=== PATIENT | female | born 1985 | race Caucasian/White ===

== ENCOUNTER 2025-04-20 02:11 | Inpatient (IN) | payer MEDICAID, OTHER ==
[~2025-04-20] VITALS: Ht 149.9 cm; Wt 63.9 kg
--- NOTE | 2025-04-20 02:41 | ED.PDOC ---
General HPI Comments 47-year-old female presents to the ED chief complaint left-sided flank pain x1 day. Patient reports history of kidney stones she states usually she stays home in his able to pass some however this once causing severe pain nausea and vomiting. Last kidney stone was a proximally one to two months ago. Complaining of sharp left-sided flank pain 10/10 on pain scale related symptoms of nausea and vomiting. Also states urinary frequency. Denies fever, chills, difficulty breathing, chest pain, diarrhea, gross blood in urine, recent travel. Chief Complaint: Flank Pain Time Seen by MD: 02:14 Reviewed notes: Nurses Notes, Medications, Allergies Allergies: Coded Allergies: NO KNOWN ALLERGIES (Unverified , 10/01/09) Information Source: Patient Mode of Arrival: Ambulatory Past Medical History PAST MEDICAL HISTORY: Denies Past Medical History (Other): Renal calculi Surgical History: Denies all surgeries CORRAL BOSS History: No Pertinent CORRAL BOSS History Family History Family History: Unknown Social History Smoker: Non-Smoker Alcohol: Denies ETOH Use Drugs: Denies Drug Use All Other Systems: Reviewed and Negative (See HPI) Physical Exam General Appearance: No Apparent Distress, Normal HEENT: Pharynx Normal Neck: Full Range of Motion, Non-Tender Respiratory: Chest Non-Tender, Lungs Clear, No Respiratory Distress, Normal Breath Sounds Cardiovascular: No Edema, No JVD, No Murmur, No Gallop, Normal Peripheral Pulses, Regular Rate/Rhythm Breast Exam: Deferred Gastrointestinal: Guarding (Flank with moderate to severe tenderness with guarding), No Organomegaly, No Pulsatile Mass, Normal Bowel Sounds, Soft, Other (Positive left side CVA tenderness) Genitalia: Deferred Pelvic: Deferred Rectal: Deferred Extremities: Normal range of motion, No pedal edema Musculoskeletal : Apperance: Normal Neurologic: Alert, No Motor Deficits, Normal Affect, Normal Mood, No Sensory Deficits Cerebellar Function: Normal Reflexes: Normal Skin: Dry, Normal Color, Warm Lymphatic: No Adenopathy Was a procedure done? Was a procedure done?: No Differential Diagnosis Kidney stone (Female): Bowel obstruction, Musculoskeletal pain, Pyelonephritis, Urinary obstruction, Urolithiasis X-Ray, Labs, Meds, VS Vital Signs Date Time Temp Pulse Resp B/P (MAP) Pulse Ox O2 Delivery O2 Flow Rate FiO2 04/20/25 03:54 98.0 97 18 110/68 (82) 97 98.0 04/20/25 02:16 98.1 107 16 116/88 98 98.1 Lab Test 04/20/25 03:50 04/20/25 02:50 Range/Units Lactic Acid Level 1.1 0.4-2.0 mmol/L White Blood Count 14.7 H 4.4-10.8 10^3/uL Red Blood Count 4.54 4.0-5.20 10^6/uL Hemoglobin 14.1 12.2-16.2 g/dL Hematocrit 42.5 36.0-46.0 % Mean Corpuscular Volume 93.5 80.0-100.0 fL Mean Corpuscular Hemoglobin 31.1 28.0-32.0 pg Mean Corpuscular Hemoglobin Concent 33.2 32.0-36.0 g/dL Red Cell Distribution Width 14.3 11.8-14.3 % Platelet Count 225 140-450 10^3/uL Mean Platelet Volume 8.1 6.9-10.8 fL Neutrophils (%) (Auto) 84.6 H 37.0-80.0 % Lymphocytes (%) (Auto) 11.7 10.0-50.0 % Monocytes (%) (Auto) 2.9 0.0-12.0 % Eosinophils (%) (Auto) 0.4 0.0-7.0 % Basophils (%) (Auto) 0.4 0.0-2.0 % Neutrophils # (Auto) 12.4 H 1.6-8.6 10 ^3/uL Lymphocytes # (Auto) 1.7 0.4-5.4 10 ^3/uL Monocytes # (Auto) 0.4 0-1.3 10 ^3/uL Eosinophils # (Auto) 0.1 0-0.8 10 ^3/uL Basophils # (Auto) 0.1 0-0.2 10 ^3/uL Nucleated Red Blood Cells 0.2 % Sodium Level 140 136-145 mmol/L Potassium Level 4.3 3.5-5.1 mmol/L Chloride Level 108 H 98-107 mmol/L Carbon Dioxide Level 18 L 20-31 mmol/L Anion Gap 14 5-15 Blood Urea Nitrogen 13 9-23 mg/dL Creatinine 1.06 H 0.550-1.02 mg/dL Glomerular Filtration Rate Calc 69 >90 mL/min BUN/Creatinine Ratio 12.3 10.0-20.0 Serum Glucose 92 74-106 mg/dL Calcium Level 9.4 8.7-10.4 mg/dL Total Bilirubin 0.5 0.2-1.0 mg/dL Aspartate Amino Transferase (AST) 22 13-40 U/L Alanine Aminotransferase (ALT) 21 7-40 U/L Alkaline Phosphatase 78 46-116 U/L Total Protein 7.7 5.7-8.2 g/dL Albumin 4.8 3.2-4.8 g/dL Current Medications Medications (Trade) Dose Ordered Sig/Vic Route Start Time Stop Time Status Last Admin Ketorolac Tromethamine (Toradol Injection) 30 mg ONCE ONCE IV 04/20/25 02:30 04/20/25 02:31 DC 04/20/25 03:32 Sodium Chloride 1,000 ml @ 1,000 mls/hr Q1H ONCE IV 04/20/25 02:30 04/20/25 03:29 DC 04/20/25 03:32 Metoclopramide HCl (Reglan Injection) 5 mg ONCE ONCE IV 04/20/25 02:30 04/20/25 02:31 DC 04/20/25 03:32 Morphine Sulfate 4 mg ONCE ONCE IV 04/20/25 03:30 04/20/25 03:31 DC 04/20/25 03:59 Tamsulosin HCl (Flomax) 0.4 mg ONCE ONCE PO 04/20/25 03:30 04/20/25 03:31 DC 04/20/25 03:59 X-Ray, Labs, Meds, VS Comment IMPRESSION: 1. Moderate left hydronephrosis secondary to a partially obstructing proximal u reterolith measuring 6 mm. Patient presented with severe left flank pain, nausea and vomiting. I ordered and reviewed the result of at least 3 labs including a CBC, CMP, Lactic Acid, Blood Cultures, and Urinalysis. 2. I independently interpreted the following tests: CT Abdoment and Pelvis is concerning for moderate left kidney hydronephrosis with partially obstructing urethral calculi 6 mm. Risk:This patient has a high risk of morbidity due to partial obstructing calculi and moderate hydronephrosis may suffer from acute kidney failure infection, and sepsis. Physical exam reveals severe left flank pain along with nausea and vomiting, patient should be admitted for further pain management, and renal consultation. Images Reviewed?: Images reviewed and evaluated by me Time of 1ST Reevaluation: 02:14 Reevaluation 1ST: Unchanged Time of 2ND Reevaluation: 04:21 Reevaluation 2ND: Improved Patient Education/Counseling: Diagnosis, Treatment, Need For Follow Up Family Education/Counseling: Diagnosis, Treatment SEPSIS Sepsis Screen Date sepsis recognized/suspect: Apr 20, 2025 Time Sepsis recognized/suspect: 217 Recent Procedure: No On Antibiotic Therapy: No Respiratory Rate >20: No Heart Rate >90: Yes Temp<36 C (96.8 F) or >38.3 C: No SBP <90 or MAP <65 mmHG: No New Acute Mental Status Change: No Is the patient on CPAP, BIPAP,: No Physician Orders Urinalysis (04/20/25 02:23) Ct Ab Pel Wo Con-No Oral Or Iv (04/20/25 02:23) Blood Culture (04/20/25 03:34) Ceftriaxone 1gm/50ml (Rocephin) (04/20/25 04:00) Vancomycin 1gm/250ml Kit (04/20/25 04:00) Vital Signs Date Time Temp Pulse Resp B/P (MAP) Pulse Ox O2 Delivery O2 Flow Rate FiO2 04/20/25 03:54 98.0 97 18 110/68 (82) 97 98.0 04/20/25 02:16 98.1 107 16 116/88 98 98.1 Laboratory Tests Test 04/20/25 02:50 04/20/25 03:50 White Blood Count 14.7 10^3/uL (4.4-10.8) H Lactic Acid Level 1.1 mmol/L (0.4-2.0) Medications Medications Dose Ordered Sig/Vic Route Start Time Stop Time Status Last Admin Dose Admin Ketorolac Tromethamine 30 mg ONCE ONCE IV 04/20/25 02:30 04/20/25 02:31 DC 04/20/25 03:32 Metoclopramide HCl 5 mg ONCE ONCE IV 04/20/25 02:30 04/20/25 02:31 DC 04/20/25 03:32 Morphine Sulfate 4 mg ONCE ONCE IV 04/20/25 03:30 04/20/25 03:31 DC 04/20/25 03:59 Sodium Chloride 1,000 ml @ 1,000 mls/hr Q1H ONCE IV 04/20/25 02:30 04/20/25 03:29 DC 04/20/25 03:32 Tamsulosin HCl 0.4 mg ONCE ONCE PO 04/20/25 03:30 04/20/25 03:31 DC 04/20/25 03:59 Departure 1 Departure Time of Disposition: 03:26 Impression: Primary Impression: Hydronephrosis with urinary obstruction due to ureteral calculus Disposition: ADMITTED INPATIENT Condition: Stable Discharged With: Relative (Mother) Critical Care Note Critical Care Time?: No Stability Stability form required: No I personally scribed for ER ([email or web address]) on 04/20/25 at 02:46. Electronically submitted by Alexis Wise [email or web address]). [facility]TTON[facility] SAENZ [facility] Apr 20, 2025 02:41 ER Apr 20, 2025 02:46
[2025-04-20 03:14] LABS: Hematocrit 42.5 % (36.0-46.0); Hemoglobin 14.1 g/dL (12.2-16.2); Mean Corpuscular Hemoglobin 31.1 pg (28.0-32.0); Mean Corpuscular Volume 93.5 fL (80.0-100.0); Nucleated Red Blood Cells % 0.2 %
--- NOTE | 2025-04-20 03:23 | DVH ---
Exam: CT CT AB PEL WO CON-NO ORAL OR IV History: FLANK PAIN Comparison Study: None Technique: Multidetector spiral CT of the abdomen was performed from lung bases to pubic symphysis. Imaging was performed without IV contrast. Axial, coronal and sagittal multiplanar reformats were obtained from the axial data set by the technologist. Radiation Dose : 1. Abdomen/Pelvis: CTDIvol 5.67 mGy, DLP 272.44 mGy*cm. Findings: Evaluation of solid organs is limited due to lack of intravenous contrast use. Lung Bases: No acute or significant lung base finding. Normal heart size. No pleural or pericardial effusion. Liver: The liver is normal in size. No focal lesions. Gallbladder and Biliary Tree: Unremarkable Spleen: Unremarkable Pancreas: The pancreas is grossly normal in appearance. Adrenal Glands: Unremarkable Kidneys: Moderate left hydronephrosis secondary to a partially obstructing proximal ureterolith measuring 6 mm. Bladder: Grossly unremarkable for degree of distention. Bowel: The stomach is grossly normal in appearance with postsurgical change. Small bowel and colon are normal in caliber and distribution. The appendix is surgically absent. Ascites: Absent Lymphadenopathy: No mesenteric, retroperitoneal or periportal lymphadenopathy. Abdominal Wall and Mesentery: Unremarkable. Vasculature: The visualized abdominal aorta is normal in size and caliber. Evaluation of abdominal and pelvic vessels is limited due to lack of intravenous contrast. Pelvic Organs: Unremarkable Musculoskeletal: No aggressive focal bony lesions, acute fractures or dislocation. IMPRESSION: 1. Moderate left hydronephrosis secondary to a partially obstructing proximal ureterolith measuring 6 mm. Radiation optimization: All CT scans at this facility use at least one of these dose optimization techniques: automated exposure control mA and/or kV adjustment per patient size (includes targeted exams where dose is matched to clinical indication) or iterative reconstruction.
[2025-04-20] MEDS: SODIUM CHLORIDE 0.9% 1,000 ML IV ONE (03:32)
[2025-04-20] MEDS: KETOROLAC TROMETH 30 MG/ML 1ML VIAL IV ONE (03:32)
[2025-04-20] MEDS: METOCLOPRAMIDE HCL 5MG/ml INJ 2ml VIAL IV ONE (03:32)
[2025-04-20 03:39] LABS: Alanine Aminotransferase 21 U/L (7-40); Alkaline Phosphatase 78 U/L (46-116); Anion Gap 14 (5-15); BUN/Creatinine Ratio 12.3 (10.0-20.0); Blood Urea Nitrogen 13 mg/dL (9-23); Calcium 9.4 mg/dL (8.7-10.4); Glucose 92 mg/dL (74-106); Potassium 4.3 mmol/L (3.5-5.1); Sodium 140 mmol/L (136-145); Total Protein 7.7 g/dL (5.7-8.2)
[2025-04-20 03:40] LABS: Albumin 4.8 g/dL (3.2-4.8); Bilirubin, Total 0.5 mg/dL (0.2-1.0)
[2025-04-20 03:59] LABS: Carbon Dioxide 18 mmol/L (20-31); Chloride 108 mmol/L (98-107)
[2025-04-20] MEDS: TAMSULOSIN HYDROCHLORIDE 0.4 MG CAP PO ONE (03:59)
[2025-04-20] MEDS: MORPHINE SULFATE 4 MG/ML SYR/VIAL IV ONE (03:59)
[2025-04-20] MEDS ORDERED: ACETAMINOPHEN 325 MG TAB PO PRN (04:00)
[2025-04-20] MEDS: VANCOMYCIN 1GM/250ML KIT 250 ML IV ONE (04:13)
--- NOTE | 2025-04-20 04:30 | DVHHP2 ---
History of Present Illness Reason for Visit: Flank pain History of Present Illness 39-year-old female presents for evaluation of flank pain. Patient with a history of kidney stones presents for evaluation of a one day history of left- sided flank pain. She reports nausea and vomiting associated with the pain. She also reports urinary frequency. Denies fever or chills. No other acute complaints reported. Past Medical History Kidney stones Past Surgical History Denies Family History Noncontributory Smoke: No ALCOHOL: none Drugs: None Lives: with Family Review of Systems Review of Systems Review of systems are currently negative otherwise addressed in HPI. Allergies: Coded Allergies: NO KNOWN ALLERGIES (Unverified , 10/01/09) Medications Current Medications Medications Dose Ordered Sig/Vic Route Start Time Stop Time Status Last Admin Dose Admin Ceftriaxone Sodium 50 ml @ 100 mls/hr DAILY@0400 IV 04/21/25 04:00 Acetaminophen/ Hydrocodone Bitart 1 tab Q4HP PRN PO 04/20/25 04:00 Ondansetron HCl 4 mg Q4HP PRN IV 04/20/25 04:00 Acetaminophen 650 mg Q6HP PRN PO 04/20/25 04:00 Morphine Sulfate 2 mg Q6HPRN PRN IV 04/20/25 04:00 Exam Vital Signs Vital Signs Date Time Temp Pulse Resp B/P (MAP) Pulse Ox O2 Delivery O2 Flow Rate FiO2 04/20/25 04:23 96 18 108/75 04/20/25 04:15 Room Air* 0 21 04/20/25 03:54 98.0 97 98.0 Exam Gen: 47-year-old female in mild distress Skin: Warm, dry, normal color and texture, no rash. HEENT: Normocephalic atraumatic, mucous membranes moist and pink. Neck: Cervical and supraclavicular nodes normal without enlargement, trachea is midline, thyroid gland is normal without masses. Pulmonary: Clear to auscultation and percussion bilaterally. Cardiac: Regular rate and rhythm. No murmur Abdomen: Soft, flank tenderness, nondistended, bowel sounds present all 4 quadrants, no guarding, no rigidity, no organomegaly. Extremities: No cyanosis, clubbing, no edema Neuro: Cranial nerves II through XII grossly intact, normal affect and speech, no focal motor deficits. Labs/Xrays ORDERING PHYSICIAN: LETTY,OTTONIEL FASHION SHOW DIRECTOR PROCEDURE(s): ABPL - CT AB PEL WO CON-NO ORAL OR IV REASON: FLANK PAIN ORDER NUMBER(s): [id number], ACCESSION NUMBER(s): [id number] Exam: CT CT AB PEL WO CON-NO ORAL OR IV History: FLANK PAIN Comparison Study: None Technique: Multidetector spiral CT of the abdomen was performed from lung bases to pubic symphysis. Imaging was performed without IV contrast. Axial, coronal and sagittal multiplanar reformats were obtained from the axial data set by the technologist. Radiation Dose : 1. Abdomen/Pelvis: CTDIvol 5.67 mGy, DLP 272.44 mGy*cm. Findings: Evaluation of solid organs is limited due to lack of intravenous contrast use. Lung Bases: No acute or significant lung base finding. Normal heart size. No pleural or pericardial effusion. Liver: The liver is normal in size. No focal lesions. Gallbladder and Biliary Tree: Unremarkable Spleen: Unremarkable Pancreas: The pancreas is grossly normal in appearance. Adrenal Glands: Unremarkable Kidneys: Moderate left hydronephrosis secondary to a partially obstructing proximal ureterolith measuring 6 mm. Bladder: Grossly unremarkable for degree of distention. Bowel: The stomach is grossly normal in appearance with postsurgical change. Small bowel and colon are normal in caliber and distribution. The appendix is surgically absent. Ascites: Absent Lymphadenopathy: No mesenteric, retroperitoneal or periportal lymphadenopathy. Abdominal Wall and Mesentery: Unremarkable. Vasculature: The visualized abdominal aorta is normal in size and caliber. Evaluation of abdominal and pelvic vessels is limited due to lack of intravenous contrast. Pelvic Organs: Unremarkable Musculoskeletal: No aggressive focal bony lesions, acute fractures or dislocation. IMPRESSION: 1. Moderate left hydronephrosis secondary to a partially obstructing proximal ureterolith measuring 6 mm. Radiation optimization: All CT scans at this facility use at least one of these dose optimization techniques: automated exposure control mA and/or kV adjustment per patient size (includes targeted exams where dose is matched to clinical indication) or iterative reconstruction. ATED BY: DANK BENNETT MD Labs Test 04/20/25 03:50 04/20/25 02:50 Range/Units Lactic Acid Level 1.1 0.4-2.0 mmol/L White Blood Count 14.7 H 4.4-10.8 10^3/uL Red Blood Count 4.54 4.0-5.20 10^6/uL Hemoglobin 14.1 12.2-16.2 g/dL Hematocrit 42.5 36.0-46.0 % Mean Corpuscular Volume 93.5 80.0-100.0 fL Mean Corpuscular Hemoglobin 31.1 28.0-32.0 pg Mean Corpuscular Hemoglobin Concent 33.2 32.0-36.0 g/dL Red Cell Distribution Width 14.3 11.8-14.3 % Platelet Count 225 140-450 10^3/uL Mean Platelet Volume 8.1 6.9-10.8 fL Neutrophils (%) (Auto) 84.6 H 37.0-80.0 % Lymphocytes (%) (Auto) 11.7 10.0-50.0 % Monocytes (%) (Auto) 2.9 0.0-12.0 % Eosinophils (%) (Auto) 0.4 0.0-7.0 % Basophils (%) (Auto) 0.4 0.0-2.0 % Neutrophils # (Auto) 12.4 H 1.6-8.6 10 ^3/uL Lymphocytes # (Auto) 1.7 0.4-5.4 10 ^3/uL Monocytes # (Auto) 0.4 0-1.3 10 ^3/uL Eosinophils # (Auto) 0.1 0-0.8 10 ^3/uL Basophils # (Auto) 0.1 0-0.2 10 ^3/uL Nucleated Red Blood Cells 0.2 % Sodium Level 140 136-145 mmol/L Potassium Level 4.3 3.5-5.1 mmol/L Chloride Level 108 H 98-107 mmol/L Carbon Dioxide Level 18 L 20-31 mmol/L Anion Gap 14 5-15 Blood Urea Nitrogen 13 9-23 mg/dL Creatinine 1.06 H 0.550-1.02 mg/dL Glomerular Filtration Rate Calc 69 >90 mL/min BUN/Creatinine Ratio 12.3 10.0-20.0 Serum Glucose 92 74-106 mg/dL Calcium Level 9.4 8.7-10.4 mg/dL Total Bilirubin 0.5 0.2-1.0 mg/dL Aspartate Amino Transferase (AST) 22 13-40 U/L Alanine Aminotransferase (ALT) 21 7-40 U/L Alkaline Phosphatase 78 46-116 U/L Total Protein 7.7 5.7-8.2 g/dL Albumin 4.8 3.2-4.8 g/dL SEPSIS Sepsis Screen Date sepsis recognized/suspect: Apr 20, 2025 Time Sepsis recognized/suspect: 416 Recent Procedure: No On Antibiotic Therapy: No Respiratory Rate >20: No Heart Rate >90: No Temp<36 C (96.8 F) or >38.3 C: No SBP <90 or MAP <65 mmHG: No New Acute Mental Status Change: No Is the patient on CPAP, BIPAP,: No Physician Orders Urinalysis (04/20/25 02:23) Ct Ab Pel Wo Con-No Oral Or Iv (04/20/25 02:23) Blood Culture (04/20/25 03:34) Ceftriaxone 1gm/50ml (Rocephin) (04/20/25 04:00) Vancomycin 1gm/250ml Kit (04/20/25 04:00) * Urology Consult (04/20/25 03:56) Regular Diet (04/20/25 Breakfast) Basic Metabolic Panel (04/21/25 04:00) Admit (04/20/25 03:56) Hydrocodone-Acet 5/325mg Tab (Alda 5/32 (04/20/25 04:00) Ondansetron Hcl (Zofran) (04/20/25 04:00) Condition: Stable (04/20/25 03:56) Acetaminophen Tablet (Tylenol Tablet) (04/20/25 04:00) Bedrest With Bathroom Privileg (04/20/25 03:56) Morphine Sulfate Injection (04/20/25 04:00) Ceftriaxone 1gm/50ml (Rocephin) (04/21/25 04:00) Vital Signs Date Time Temp Pulse Resp B/P (MAP) Pulse Ox O2 Delivery O2 Flow Rate FiO2 04/20/25 04:23 96 18 108/75 04/20/25 04:15 Room Air* 0 21 04/20/25 03:59 93 18 110/68 04/20/25 03:54 98.0 97 18 110/68 (82) 97 98.0 04/20/25 02:16 98.1 107 16 116/88 98 98.1 Laboratory Tests Test 04/20/25 02:50 04/20/25 03:50 White Blood Count 14.7 10^3/uL (4.4-10.8) H Lactic Acid Level 1.1 mmol/L (0.4-2.0) Medications Medications Dose Ordered Sig/Vic Route Start Time Stop Time Status Last Admin Dose Admin Ceftriaxone Sodium 50 ml @ 100 mls/hr ONCE ONCE IV 04/20/25 04:00 04/20/25 04:29 04/20/25 03:59 100 MLS/HR Ketorolac Tromethamine 30 mg ONCE ONCE IV 04/20/25 02:30 04/20/25 02:31 DC 04/20/25 03:32 30 MG Metoclopramide HCl 5 mg ONCE ONCE IV 04/20/25 02:30 04/20/25 02:31 DC 04/20/25 03:32 5 MG Morphine Sulfate 4 mg ONCE ONCE IV 04/20/25 03:30 04/20/25 03:31 DC 04/20/25 03:59 4 MG Sodium Chloride 1,000 ml @ 1,000 mls/hr Q1H ONCE IV 04/20/25 02:30 04/20/25 03:29 DC 04/20/25 03:32 1,000 MLS/HR Tamsulosin HCl 0.4 mg ONCE ONCE PO 04/20/25 03:30 04/20/25 03:31 DC 04/20/25 03:59 0.4 MG Vancomycin HCl 250 ml @ 250 mls/hr ONCE ONCE IV 04/20/25 04:00 04/20/25 04:59 04/20/25 04:13 250 MLS/HR Assessment/Plan Assessment/Plan Assessment Obstructive uropathy Ureteral calculus left hydronephrosis secondary to the above Leukocytosis Acute kidney injury Plan Admit the [facility] to [facility] to the hospitalist Urology consultation Rocephin Pain management Continue treatment per orders Plan discussed with: Patient My Orders Orders - NASREEN BETTENCOURT Procedure Category Date Status Time * Urology Consult CONS 04/20/25 Transmitted 03:56 Regular Diet DIET 04/20/25 Transmitted Breakfast Basic Metabolic Panel LAB 04/21/25 Verified 04:00 Admit ADMIT 04/20/25 Transmitted 03:56 Hydrocodone-Acet PHA 04/20/25 In Process 5/325mg Tab (Alda 04:00 Ondansetron Hcl PHA 04/20/25 In Process (Zofran) 04:00 Condition: Stable PONCE 04/20/25 In Process 03:56 Acetaminophen Tablet PHA 04/20/25 In Process (Tylenol Tablet) 04:00 Bedrest With Bathroom PONCE 04/20/25 In Process Privileg 03:56 Morphine Sulfate PHA 04/20/25 In Process Injection 04:00 Ceftriaxone 1gm/50ml PHA 04/21/25 In Process (Rocephin) 04:00 Date of Service: Apr 20, 2025 Billing Provider: NASREEN BETTENCOURT Common Visit Codes: [id number] INP/OBS CARE (MOD) NASREEN BETTENCOURT Apr 20, 2025 04:30
[2025-04-20] MEDS: ONDANSETRON HCL 4 MG/2 ML VIAL IV PRN (09:17)
[2025-04-20 10:00] VITALS: PULSE 89; RESP 18; O2SAT 98
[2025-04-20 10:31] VITALS: BP 107/68; PULSE 89; RESP 18; TEMP 98.7; O2SAT 98
[2025-04-20 10:32] VITALS: BP 107/68; PULSE 89; RESP 18; TEMP 98.7; O2SAT 98
[2025-04-20] MEDS: SODIUM CHLORIDE 0.9% 1,000 ML IV SCH (11:30)
--- NOTE | 2025-04-20 12:26 | DVHPN2 ---
Subjective Patient continues to reporting having left flank pain as well as generalized weakness. Reviewed: Care Plan, H&P, Labs, Medications Changes from previous H/P or p: No Changes General: Per HPI Objective Vitals Vital Signs Date Time Temp Pulse Resp B/P (MAP) Pulse Ox O2 Delivery O2 Flow Rate FiO2 04/20/25 10:32 98.7 89 18 107/68 (81) 98 98.7 04/20/25 04:15 Room Air* 0 21 General Appearance: Alert, Oriented X3, Cooperative, mild distress HEENT: Atraumatic, PERRLA Lungs: Clear to auscultation, Normal air movement Cardiovascular: Normal S1, Normal S2 Abdomen: Normal bowel sounds, Soft, No tenderness, No hepatospenomegaly, No masses Genitourinary: No Apparent Abnormalities Back: Flank Tenderness, Midline Tenderness Musculoskeletal: Normal sensory function, Normal motor function Extremities: No clubbing, No cyanosis, No edema, Normal pulses, No tenderness/swelling Neuro: Normal gait, Normal speech, Cranial nerves 3-12 NL Skin: Dry, Intact Psych/Mental Status: Mental status NL, Mood NL Medications Current Medications Medications Dose Ordered Sig/Vic Route Start Time Stop Time Status Last Admin Dose Admin Ceftriaxone Sodium 50 ml @ 100 mls/hr DAILY@0400 IV 04/21/25 04:00 Acetaminophen/ Hydrocodone Bitart 1 tab Q4HP PRN PO 04/20/25 04:00 Ondansetron HCl 4 mg Q4HP PRN IV 04/20/25 04:00 04/20/25 09:17 4 MG Acetaminophen 650 mg Q6HP PRN PO 04/20/25 04:00 Morphine Sulfate 2 mg Q6HPRN PRN IV 04/20/25 04:00 Sodium Chloride 1,000 ml @ 75 mls/hr [id number] IV 04/20/25 11:30 Laboratory Results Laboratory Tests 04/20/25 02:50 Chemistry Test 04/20/25 02:50 Albumin 4.8 g/dL (3.2-4.8) Calcium Level 9.4 mg/dL (8.7-10.4) Total Protein 7.7 g/dL (5.7-8.2) LFT Test 04/20/25 02:50 Alanine Aminotransferase (ALT) 21 U/L (7-40) Alkaline Phosphatase 78 U/L (46-116) Aspartate Amino Transferase (AST) 22 U/L (13-40) Total Bilirubin 0.5 mg/dL (0.2-1.0) Labs and/or images reviewed: Labs reviewed by me, Image(s) reviewed by me Assessment/Plan Assessment/Plan Impression: -sepsis -complicated cystitis -obstructive uropathy with left nephrolithiasis Plan: -IV hydration -urology consultation -strain urine for stones -continue IV Rocephin -pain management -blood and urine culture -labs in a.m. Total time spent with patient discussing and formulating plan of care: 35 minutes. This medical document was created using an electronic medical record system with [employer] dictation system. Although this document has been carefully reviewed, there may still be some phonetic and typographical errors. These areas are purely typographical due to imperfections of the software programs, and do not reflect any compromise in the patient's medical care. Plan discussed with: Patient, Other (RN) My Orders Orders - IRAIDA DINH NP Procedure Category Date Status Time * Urology Consult CONS 04/20/25 Transmitted 11:25 Sodium Chloride 0.9% PHA 04/20/25 In Process 11:30 Complete Blood Count LAB 04/21/25 Verified 04:00 Urine Bacterial PAYAM 04/20/25 Transmitted Culture 12:19 Tamsulosin PHA 04/20/25 Transmitted Hydrochloride (Flomax) 18:00 Strain All Urine For PONCE 04/20/25 Transmitted Stones 12:19 Date of Service: Apr 20, 2025 Billing Provider: IRAIDA DINH NP Common Visit Codes: [id number] INP/OBS CARE(HIGH) IRAIDA DINH NP Apr 20, 2025 12:26
[2025-04-20 13:02] LABS: Urine Protein, UAD 1+ (Negative)
--- NOTE | 2025-04-20 13:19 | DVHINCON2 ---
Date of service: Apr 20, 2025 Referring Physician Hospitalist Reason for Consultation obstructive ureteral stone History of Present Illness History Source: Patient, RN Notes, MD Notes Exam Limitations: No limitations HPI 39-year-old female presents for evaluation of flank pain. Patient with a history of kidney stones presents for evaluation of a one day history of left- sided flank pain. She reports nausea and vomiting associated with the pain. She also reports urinary frequency. Denies fever or chills. No other acute complaints reported. Past Medical History Renal/: Other (kidney stones) Patient Family History: Hypertension G8 FATHER H&P Exam Vital Signs Vital Signs Date Time Temp Pulse Resp B/P (MAP) Pulse Ox O2 Delivery O2 Flow Rate FiO2 04/20/25 10:32 98.7 89 18 107/68 (81) 98 98.7 04/20/25 04:15 Room Air* 0 21 General Appeara: Well developed, Well nourished, Normal Appearance Neuro/Mental St: Alert, Oriented Appearance: Appropriate appearance, Appropriate insight Eye contact/ Speech: Cooperative, Good eye contact, Normal speech Skin Exam: Normal inspection, Normal color, Warm/dry Labs/Xrays [place] [address] Ph: [phone] DIAGNOSTIC IMAGING Diagnostic Imaging Report : [id number] Signed PATIENT: CHERIE PRAKASH ACCT: [id number] UNIT: [id number] : 1985 LOC: ER ROOM / BED: / AGE / SEX: 39 / F ADM STATUS: REG ER SERVICE 0223 ORDERING PHYSICIAN: OTTONIEL SAENZ PROCEDURE(s): ABPL - CT AB PEL WO CON-NO ORAL OR IV REASON: FLANK PAIN ORDER NUMBER(s): [id number], ACCESSION NUMBER(s): [id number] Exam: CT CT AB PEL WO CON-NO ORAL OR IV History: FLANK PAIN Comparison Study: None Technique: Multidetector spiral CT of the abdomen was performed from lung bases to pubic symphysis. Imaging was performed without IV contrast. Axial, coronal and sagittal multiplanar reformats were obtained from the axial data set by the technologist. Radiation Dose : 1. Abdomen/Pelvis: CTDIvol 5.67 mGy, DLP 272.44 mGy*cm. Findings: Evaluation of solid organs is limited due to lack of intravenous contrast use. Lung Bases: No acute or significant lung base finding. Normal heart size. No pleural or pericardial effusion. Liver: The liver is normal in size. No focal lesions. Gallbladder and Biliary Tree: Unremarkable Spleen: Unremarkable Pancreas: The pancreas is grossly normal in appearance. Adrenal Glands: Unremarkable Kidneys: Moderate left hydronephrosis secondary to a partially obstructing proximal ureterolith measuring 6 mm. Bladder: Grossly unremarkable for degree of distention. Bowel: The stomach is grossly normal in appearance with postsurgical change. Small bowel and colon are normal in caliber and distribution. The appendix is surgically absent. Ascites: Absent Lymphadenopathy: No mesenteric, retroperitoneal or periportal lymphadenopathy. Abdominal Wall and Mesentery: Unremarkable. Vasculature: The visualized abdominal aorta is normal in size and caliber. Evaluation of abdominal and pelvic vessels is limited due to lack of intravenous contrast. Pelvic Organs: Unremarkable Musculoskeletal: No aggressive focal bony lesions, acute fractures or dislocation. IMPRESSION: 1. Moderate left hydronephrosis secondary to a partially obstructing proximal ureterolith measuring 6 mm. Radiation optimization: All CT scans at this facility use at least one of these dose optimization techniques: automated exposure control mA and/or kV adjustment per patient size (includes targeted exams where dose is matched to clinical indication) or iterative reconstruction. ATED BY: DANK CARROLL MD DICTATED DATE/TIME: 04/20/25319 SIGNED BY: DANK CARROLL MD SIGNED DATE/TIME: 04/20/25319 CC: Labs Test 04/20/25 09:05 04/20/25 03:50 04/20/25 02:50 Range/Units Urine Color Light-yellow Yellow Urine Clarity Clear Clear Urine pH 6.5 5.0-9.0 Urine Specific [place] 1.023 1.001-1.035 Urine Protein 1+ H Negative Urine Ketones Negative Negative Urine Blood 1+ H Negative /uL Urine Nitrite Negative Negative Urine Bilirubin Negative Negative Urine Urobilinogen 2 H Negative mg/dL Urine Leukocyte Esterase Trace Negative /uL Urine RBC 18 0 - 4 /hpf Urine Microscopic WBC 10 H 0-5 /HPF Urine Squamous Epithelial Cells Few <5 /hpf Urine Bacteria Many H None Seen /hpf Urine Mucus Few None Seen Urine Glucose Trace Normal mg/dL Lactic Acid Level 1.1 0.4-2.0 mmol/L White Blood Count 14.7 H 4.4-10.8 10^3/uL Red Blood Count 4.54 4.0-5.20 10^6/uL Hemoglobin 14.1 12.2-16.2 g/dL Hematocrit 42.5 36.0-46.0 % Mean Corpuscular Volume 93.5 80.0-100.0 fL Mean Corpuscular Hemoglobin 31.1 28.0-32.0 pg Mean Corpuscular Hemoglobin Concent 33.2 32.0-36.0 g/dL Red Cell Distribution Width 14.3 11.8-14.3 % Platelet Count 225 140-450 10^3/uL Mean Platelet Volume 8.1 6.9-10.8 fL Neutrophils (%) (Auto) 84.6 H 37.0-80.0 % Lymphocytes (%) (Auto) 11.7 10.0-50.0 % Monocytes (%) (Auto) 2.9 0.0-12.0 % Eosinophils (%) (Auto) 0.4 0.0-7.0 % Basophils (%) (Auto) 0.4 0.0-2.0 % Neutrophils # (Auto) 12.4 H 1.6-8.6 10 ^3/uL Lymphocytes # (Auto) 1.7 0.4-5.4 10 ^3/uL Monocytes # (Auto) 0.4 0-1.3 10 ^3/uL Eosinophils # (Auto) 0.1 0-0.8 10 ^3/uL Basophils # (Auto) 0.1 0-0.2 10 ^3/uL Nucleated Red Blood Cells 0.2 % Sodium Level 140 136-145 mmol/L Potassium Level 4.3 3.5-5.1 mmol/L Chloride Level 108 H 98-107 mmol/L Carbon Dioxide Level 18 L 20-31 mmol/L Anion Gap 14 5-15 Blood Urea Nitrogen 13 9-23 mg/dL Creatinine 1.06 H 0.550-1.02 mg/dL Glomerular Filtration Rate Calc 69 >90 mL/min BUN/Creatinine Ratio 12.3 10.0-20.0 Serum Glucose 92 74-106 mg/dL Calcium Level 9.4 8.7-10.4 mg/dL Total Bilirubin 0.5 0.2-1.0 mg/dL Aspartate Amino Transferase (AST) 22 13-40 U/L Alanine Aminotransferase (ALT) 21 7-40 U/L Alkaline Phosphatase 78 46-116 U/L Total Protein 7.7 5.7-8.2 g/dL Albumin 4.8 3.2-4.8 g/dL Assessment/Plan Problem List: (1) Hydronephrosis with urinary obstruction due to ureteral calculus Plan UA pending continue IVF and flomax strain urine pain meds prn NPO after midnight consent for left stent and ESWL tomorrow if machine available Plan discussed with: Patient, Other SHARITA SAMANIEGO CREATIVE MANAGER Apr 20, 2025 13:19
[2025-04-20 17:00] VITALS: BP 116/76; PULSE 74; RESP 17; TEMP 98.3; O2SAT 97
[2025-04-20] MEDS: HYDROcodone-ACET 5/325MG TAB PO PRN (17:13)
[2025-04-20] MEDS: TAMSULOSIN HYDROCHLORIDE 0.4 MG CAP PO SCH (19:17)
[2025-04-20 20:00] VITALS: PULSE 90; RESP 18; O2SAT 98
[2025-04-20 21:00] VITALS: BP 112/67; PULSE 85; RESP 19; TEMP 98.4; O2SAT 96
[2025-04-20] MEDS: MORPHINE SULFATE INJ 2 MG/ml SYRG IV PRN (22:47)
[2025-04-21] VITALS (12 sets, daily range): BP systolic 115–143; BP diastolic 68–97; PULSE 68–102; RESP 13–20; TEMP 97.6–98.3; O2SAT 97–98
[2025-04-21 06:16] LABS: Hematocrit 35.0 % (36.0-46.0); Hemoglobin 11.6 g/dL (12.2-16.2); Mean Corpuscular Hemoglobin 31.0 pg (28.0-32.0); Mean Corpuscular Volume 93.3 fL (80.0-100.0); Nucleated Red Blood Cells % 0.0 %
[2025-04-21 06:30] LABS: Anion Gap 9 (5-15); Potassium 3.7 mmol/L (3.5-5.1); Sodium 139 mmol/L (136-145)
[2025-04-21 06:34] LABS: Calcium 8.6 mg/dL (8.7-10.4); Carbon Dioxide 19 mmol/L (20-31); Chloride 111 mmol/L (98-107)
[2025-04-21 06:36] LABS: BUN/Creatinine Ratio 15.9 (10.0-20.0); Blood Urea Nitrogen 11 mg/dL (9-23); Glucose 93 mg/dL (74-106)
[2025-04-21] MEDS: KETOROLAC TROMETH 30 MG/ML 1ML VIAL IV ONE (11:50)
[2025-04-21] MEDS ORDERED: KETOROLAC TROMETH 30 MG/ML 1ML VIAL IV ONE (13:30)
[2025-04-21] MEDS ORDERED: MORPHINE SULFATE 4 MG/ML SYR/VIAL IV PRN (13:30)
[2025-04-21] MEDS ORDERED: MORPHINE SULFATE INJ 2 MG/ml SYRG IV PRN (13:30)
[2025-04-21] MEDS ORDERED: HYDROmorphone HCL 2 MG/ML VL/or syr IV PRN ×2 (13:30)
[2025-04-21] MEDS ORDERED: MEPERIDINE HCL (25 MG/ML) 1ML VIAL ONE (13:42)
[2025-04-21] MEDS ORDERED: fentaNYL CITRATE 100 MCG/2 ML VL ONE (13:42)
[2025-04-21] MEDS ORDERED: MIDAZOLAM HCL 2MG/2ML 2ml VIAL (1mg/ml) ONE (13:42)
[2025-04-21] MEDS ORDERED: ONDANSETRON HCL 4 MG/2 ML VIAL ONE (13:43)
[2025-04-21] MEDS ORDERED: KETAMINE 50mg/ML 10ml Vial 10 ML ONE (13:43)
[2025-04-21] MEDS ORDERED: PROPOFOL 10 MG/ML 20 ML IV ONE (13:43)
[2025-04-21] MEDS ORDERED: SODIUM CHLORIDE LOCK 10 ML ONE (13:43)
--- NOTE | 2025-04-21 14:03 | DVHPN2 ---
Subjective Patient continues to reporting having left flank pain as well as generalized weakness. Reviewed: Care Plan, H&P, Labs, Medications Changes from previous H/P or p: No Changes General: Per HPI Objective Vitals Vital Signs Date Time Temp Pulse Resp B/P (MAP) Pulse Ox O2 Delivery O2 Flow Rate FiO2 04/21/25 08:00 68 18 98 Room Air* 0 21 04/21/25 05:00 97.6 115/68 (84) 97.6 Intake/Output Intake and Output 04/21/25 07:00 Intake Total 0 ml Balance 0 ml Intake Oral 0 ml # Voids 7 General Appearance: Alert, Oriented X3, Cooperative, mild distress HEENT: Atraumatic, PERRLA Lungs: Clear to auscultation, Normal air movement Cardiovascular: Normal S1, Normal S2 Abdomen: Normal bowel sounds, Soft, No tenderness, No hepatospenomegaly, No masses Genitourinary: No Apparent Abnormalities Back: Flank Tenderness, Midline Tenderness Musculoskeletal: Normal sensory function, Normal motor function Extremities: No clubbing, No cyanosis, No edema, Normal pulses, No tenderness/swelling Neuro: Normal gait, Normal speech, Cranial nerves 3-12 NL Skin: Dry, Intact Psych/Mental Status: Mental status NL, Mood NL Medications Current Medications Medications Dose Ordered Sig/Vic Route Start Time Stop Time Status Last Admin Dose Admin Ceftriaxone Sodium 50 ml @ 100 mls/hr DAILY@0400 IV 04/21/25 04:00 Acetaminophen/ Hydrocodone Bitart 1 tab Q4HP PRN PO 04/20/25 04:00 04/21/25 00:43 1 TAB Ondansetron HCl 4 mg Q4HP PRN IV 04/20/25 04:00 04/20/25 17:18 4 MG Acetaminophen 650 mg Q6HP PRN PO 04/20/25 04:00 Morphine Sulfate 2 mg Q6HPRN PRN IV 04/20/25 04:00 04/20/25 22:47 2 MG Sodium Chloride 1,000 ml @ 75 mls/hr [id number] IV 04/20/25 11:30 04/21/25 12:14 75 MLS/HR Tamsulosin HCl 0.4 mg QPM PO 04/20/25 18:00 04/20/25 19:17 0.4 MG Hydromorphone HCl 0.5 mg Q10M PRN IV 04/21/25 13:30 04/21/25 14:11 Morphine Sulfate 2 mg Q4H PRN IV 04/21/25 13:30 04/21/25 17:31 Hydromorphone HCl 0.25 mg Q10M PRN IV 04/21/25 13:30 04/21/25 14:01 Morphine Sulfate 1 mg Q30M PRN IV 04/21/25 13:30 04/21/25 15:31 Laboratory Results Laboratory Tests 04/21/25 05:40 Chemistry Test 04/21/25 05:40 Calcium Level 8.6 mg/dL (8.7-10.4) L Urinalysis Test 04/20/25 09:05 Urine Color Light-yellow (Yellow) Urine Clarity Clear (Clear) Urine pH 6.5 (5.0-9.0) Urine Specific [place] 1.023 (1.001-1.035) Urine Protein 1+ (Negative) H Urine Ketones Negative (Negative) Urine Blood 1+ /uL (Negative) H Urine Nitrite Negative (Negative) Urine Bilirubin Negative (Negative) Urine Urobilinogen 2 mg/dL (Negative) H Urine Leukocyte Esterase Trace /uL (Negative) Urine RBC 18 /hpf (0 - 4) Urine Microscopic WBC 10 /HPF (0-5) H Urine Squamous Epithelial Cells Few /hpf (<5) Urine Bacteria Many /hpf (None Seen) H Urine Mucus Few (None Seen) Urine Glucose Trace mg/dL (Normal) Microbiology Microbiology Date/Time Source Procedure Growth Status 04/20/25 09:08 Voided Urine Urine Culture - Preliminary No growth Resulted 04/20/25 03:50 Blood Blood Culture - Preliminary NO GROWTH AFTER 24 HOURS OF INCUBATION. Resulted Labs and/or images reviewed: Labs reviewed by me, Image(s) reviewed by me Assessment/Plan Assessment/Plan Impression: -sepsis -complicated cystitis -obstructive uropathy with left nephrolithiasis Plan: Events: Patient is assessed in preop area. Patient undergo ESWL. -IV hydration -urology consultation : Recommendations reviewed -strain urine for stones -continue IV Rocephin -pain management -repeat labs in a.m. -discharge in a.m. if cleared by Urology. Total time spent with patient discussing and formulating plan of care: 35 minutes. This medical document was created using an electronic medical record system with Dragon computerized dictation system. Although this document has been carefully reviewed, there may still be some phonetic and typographical errors. These areas are purely typographical due to imperfections of the software programs, and do not reflect any compromise in the patient's medical care. Plan discussed with: Patient, Other (RN) Date of Service: Apr 21, 2025 Billing Provider: IRAIDA DINH NP Common Visit Codes: [id number] INP/OBS CARE(HIGH) IRAIDA DINH NP Apr 21, 2025 14:03
[2025-04-21] MEDS: CIPROFLOXACIN 400MG/200ML 200 ML IV ONE (14:30)
[2025-04-21] MEDS ORDERED: MEPERIDINE HCL (25 MG/ML) 1ML VIAL IV PRN (15:45)
[2025-04-21] MEDS ORDERED: ACETAMINOPHEN IV 1000 MG/100ML (10MG/ML) IV PRN (15:45)
--- NOTE | 2025-04-21 15:46 | DVHNC2 ---
Procedure - OPERATIVE REPORT Pre-op. Diagnosis: Proximal Ureteral Stone - LEFT, 5 mm Hydronephrosis - LEFT Flank Pain - LEFT Post-op. Diagnosis: Same as pre-op diagnosis Operation: Extracorporeal Shockwave Lithotripsy - LEFT Cystoscopy, Ureteral stent placement with stone manipulation- LEFT Anesthesia: General Indications: Patient is here to undergo left ESWL therapy along with cystoscopy and left ureteral stent placement. Informed Consent: Options were discussed. Treatments can include conservative therapy, Extra-corporeal shockwave therapy (ESWL), Ureteroscopy with laser lithotripsy vs extraction, PCNL (percutaneous nephrolithotomy); with or without the use of Stents or retrograde pyelography. Corresponding advantages and disadvantages were also discussed. Questions were addressed. Patient wishes to proceed with left ESWL and possible cystoscopy with left ureteral stent placement. Risks and benefits of the surgery were reviewed with patient which include but are not limited to infection, bleeding, urosepsis, renal hemorrhage/hematoma formation, ureteral perforation, ureteral stricture formation, need for further surgery if stone does not break, ureteral obstruction from stone fragments, cardiac arrthymia and risks of anesthesia. Despite these risks, patient wishes to proceed with the surgery. Patient fully understood and signed the consent. Details of Procedure: Under satisfactory anesthesia, the patient was positioned on the lithotripsy table. Using fluoroscopy the stone was localized. Patient was then positioned in dorsal lithotomy position, prep and draped under standard fashion and cystoscopy with a 22Fr rigid cystoscope was performed. The left ureteral orifice was cannulated with a sensoer tip guidewire and advanced into the left renal pelvis under fluroscopy. A 6x26 JJ left Ureteral stent was then placed over the wire under Fluoroscopic and cystoscopic guidance. A good curl was seen in the kidney under fluorscopy and a good curl was seen in the bladder under direct visualization. The bladder was emptied and the cystoscope was taken out. We then positioned the patient into a supine position, identified the stones and began extra-corporeal shockwave lithotripsy. Starting at low energy levels, shockwave treatment was commenced. The energy level was gradually increased and stones were fragmented. Once therapy was done, general anesthesia was reversed, the patient was then taken off the lithotripsy table and sent to recovery room i n stable condition. Specimens: None Complications: None Findings: Stone Laterality: Left Stone Location: 5 mm proximal ureteral to renal (manipulated into left renal pelvis with stent placement) Shocks Delivered: 2400 Max Power settin Fragmentation Quality: Well Ureteral stent size & length: 6x24 PL left ureteral stent MARC KILLIAN MD Apr 21, 2025 15:46
[2025-04-21] MEDS: ONDANSETRON HCL 4 MG/2 ML VIAL IV PRN (16:20)
[2025-04-21] MEDS: HYDROmorphone HCL 2 MG/ML VL/or syr IV PRN (16:23)
[2025-04-21] MEDS: IOHEXOL 300 MG/ML 100ML BOTTLE IJ ONE (16:26)
[2025-04-21] MEDS: METOCLOPRAMIDE HCL 5MG/ml INJ 2ml VIAL IV PRN (16:52)
[2025-04-21] MEDS: METOCLOPRAMIDE HCL 5MG/ml INJ 2ml VIAL ONE (17:08)
[2025-04-22] VITALS (7 sets, daily range): BP systolic 114–134; BP diastolic 63–92; PULSE 75–100; RESP 16–18; TEMP 97.5–98.4; O2SAT 96–98
[2025-04-22 06:57] LABS: Hematocrit 34.3 % (36.0-46.0); Hemoglobin 11.7 g/dL (12.2-16.2); Mean Corpuscular Hemoglobin 31.4 pg (28.0-32.0); Mean Corpuscular Volume 91.8 fL (80.0-100.0); Nucleated Red Blood Cells % 0.1 %
[2025-04-22 07:10] LABS: Anion Gap 10 (5-15); Carbon Dioxide 23 mmol/L (20-31); Potassium 4.1 mmol/L (3.5-5.1); Sodium 143 mmol/L (136-145)
[2025-04-22 07:11] LABS: Calcium 8.8 mg/dL (8.7-10.4)
[2025-04-22 07:13] LABS: Chloride 110 mmol/L (98-107)
[2025-04-22 07:16] LABS: BUN/Creatinine Ratio 8.2 (10.0-20.0); Glucose 84 mg/dL (74-106)
[2025-04-22 07:17] LABS: Blood Urea Nitrogen 6 mg/dL (9-23)
[2025-04-22] MEDS ORDERED: CIP500T PO (08:50)
[2025-04-22] MEDS ORDERED: HYDR-4798 PO (08:50)
[2025-04-22] MEDS: HYDROcodone-ACET 10/325MG TAB PO PRN (10:09)
--- NOTE | 2025-04-22 10:09 | DVHDS2 ---
Discharge Summary Date of Admission Apr 20, 2025 at 03:56 Date of Discharge: Apr 22, 2025 Admitting Diagnosis Obstructive uropathy Labs/Diagnostic Data: Laboratory Results Test 04/22/25 06:02 04/21/25 05:40 04/20/25 09:05 04/20/25 03:50 White Blood Count 7.8 10^3/uL (4.4-10.8) Red Blood Count 3.74 10^6/uL (4.0-5.20) Hemoglobin 11.7 g/dL (12.2-16.2) Hematocrit 34.3 % (36.0-46.0) Mean Corpuscular Volume 91.8 fL (80.0-100.0) Mean Corpuscular Hemoglobin 31.4 pg (28.0-32.0) Mean Corpuscular Hemoglobin Concent 34.1 g/dL (32.0-36.0) Red Cell Distribution Width 13.9 % (11.8-14.3) Platelet Count 199 10^3/uL (140-450) Mean Platelet Volume 7.8 fL (6.9-10.8) Neutrophils (%) (Auto) 71.2 % (37.0-80.0) Lymphocytes (%) (Auto) 23.0 % (10.0-50.0) Monocytes (%) (Auto) 4.2 % (0.0-12.0) Eosinophils (%) (Auto) 1.2 % (0.0-7.0) Basophils (%) (Auto) 0.4 % (0.0-2.0) Neutrophils # (Auto) 5.6 10 ^3/uL (1.6-8.6) Lymphocytes # (Auto) 1.8 10 ^3/uL (0.4-5.4) Monocytes # (Auto) 0.3 10 ^3/uL (0-1.3) Eosinophils # (Auto) 0.1 10 ^3/uL (0-0.8) Basophils # (Auto) 0 10 ^3/uL (0-0.2) Nucleated Red Blood Cells 0.1 % Sodium Level 143 mmol/L (136-145) Potassium Level 4.1 mmol/L (3.5-5.1) Chloride Level 110 mmol/L (98-107) Carbon Dioxide Level 23 mmol/L (20-31) Anion Gap 10 (5-15) Blood Urea Nitrogen 6 mg/dL (9-23) Creatinine 0.73 mg/dL (0.550-1.02) Glomerular Filtration Rate Calc 108 mL/min (>90) BUN/Creatinine Ratio 8.2 (10.0-20.0) Serum Glucose 84 mg/dL (74-106) Calcium Level 8.8 mg/dL (8.7-10.4) Beta HCG, Quantitative 0.7 mIU/mL (1.5-4.2) Urine Color Light-yellow (Yellow) Urine Clarity Clear (Clear) Urine pH 6.5 (5.0-9.0) Urine Specific [place] 1.023 (1.001-1.035) Urine Protein 1+ (Negative) Urine Ketones Negative (Negative) Urine Blood 1+ /uL (Negative) Urine Nitrite Negative (Negative) Urine Bilirubin Negative (Negative) Urine Urobilinogen 2 mg/dL (Negative) Urine Leukocyte Esterase Trace /uL (Negative) Urine RBC 18 /hpf (0 - 4) Urine Microscopic WBC 10 /HPF (0-5) Urine Squamous Epithelial Cells Few /hpf (<5) Urine Bacteria Many /hpf (None Seen) Urine Mucus Few (None Seen) Urine Glucose Trace mg/dL (Normal) Lactic Acid Level 1.1 mmol/L (0.4-2.0) Test 04/20/25 02:50 Total Bilirubin 0.5 mg/dL (0.2-1.0) Aspartate Amino Transferase (AST) 22 U/L (13-40) Alanine Aminotransferase (ALT) 21 U/L (7-40) Alkaline Phosphatase 78 U/L (46-116) Total Protein 7.7 g/dL (5.7-8.2) Albumin 4.8 g/dL (3.2-4.8) Other Laboratory Tests 04/22/25 06:02 Brief Hx & Hospital Course: History of Present Illness 39-year-old female presents for evaluation of flank pain. Patient with a history of kidney stones presents for evaluation of a one day history of left- sided flank pain. She reports nausea and vomiting associated with the pain. She also reports urinary frequency. Denies fever or chills. No other acute complaints reported. Course of hospitalization: Patient had urology consultation with the patient undergoing cystoscopy with ureter stent placement and lithotripsy. Antibiotic therapy was started with IV Rocephin. Today, patient's hematuria has improved dramatically. Awaiting for Carter catheter be removed and Urology clearance for discharge today. Patient will be continued on antibiotic therapy with ciprofloxacin 500 mg p.o. b.i.d. for seven days as well as patient having Marty 10/325 q.8 hours as needed for pain. She is instructed to follow up with the discharge Clinic in one week as well as Dr. De La Cruz in 3-4 weeks for removal of the ureters stent. Physical examination General: Alert and Oriented x3. No acute distress. Well-nourished. Eyes: EOMI. Anicteric. HENT: Moist mucous membranes. Lungs: Clear to auscultation bilaterally. No accessory muscle use. Cardiovascular: Regular rate and rhythm. No murmur. No JVD. Abdomen: Soft, non-tender and non-distended. No palpable masses. Extremities: No edema. Non-tender. Skin: No rashes or lesions. Warm. Neurologic: No focal neurological deficits. CN II-XII grossly intact, but not individually tested. Psychiatric: Cooperative. Appropriate mood and affect. Total time spent with patient discussing and formulating plan of care: 35 minutes. This medical document was created using an electronic medical record system with [employer] dictation system. Although this document has been carefully reviewed, there may still be some phonetic and typographical errors. These areas are purely typographical due to imperfections of the software programs, and do not reflect any compromise in the patient's medical care. Condition at Discharge: Fair Final Diagnosis/Problems List -sepsis -complicated cystitis -obstructive uropathy with left nephrolithiasis Discharge Disposition: Home Discharge Instruct/Medications Diet: Regular Activity: No Restrictions, As Tolerated Follow Up/Referral: PCP in 1-2 weeks DC clinic in [address] De La Cruz in 3-4 weeks Medications: Marty 10/325 q8hrs moderate to severe pain Ciprofloxin 500mg po bid x 7 days Scheduled Ciprofloxacin Hydrochloride (Ciprofloxacin HCl), 500 MG PO BID Scheduled PRN Hydrocodone-Acetaminophen (Hydrocodone Bitartrate/AC 10-325 mg), 1 TAB PO Q8HP PRN 36 Discharge Statement: "Patient was advised to return to the ER or call 911 if any headaches, dizziness, shortness of breath, chest pain, abdominal pain, bleeding, fevers, or worsening of medical condition. Patient was counseled about treatment plan, medications, possible side effects, patientverbalized understanding. All questions were answered to the best of my ability. This discharge took greater then 30 minutes in planning, reviewing documentation, counseling the patient, and discussing with other team members." ASSESSMENT ASSESSMENT Assessment Sepsis Obstructive Uropathy Date of Service: Apr 22, 2025 Billing Provider: IRAIDA DINH NP Common Visit Codes: 27107-INI/OBS DISCH DAY >30min IRAIDA DINH NP Apr 22, 2025 10:09
== END 2025-04-22 20:24 | disposition home or self-care (01) | DRG 710 ==
LOC: ER 02:11 → OVERFLOW 03:56 → CENTRAL 04-21 17:45
PROVIDERS: ADMIT Nurse Practitioner Acute Care; ATTEND Nurse Practitioner Acute Care
PROC: 0T778DZ Dilation of Left Ureter with Intraluminal Device, Via Natural or Artificial Opening Endoscopic (ICD-10-PCS; 2025-04-21)
PROC: 0TC78ZZ Extirpation of Matter from Left Ureter, Via Natural or Artificial Opening Endoscopic (ICD-10-PCS; principal; 2025-04-21 14:23)
DX: A41.9 Sepsis, unspecified organism (principal); N17.9 Acute kidney failure, unspecified; N13.6 Pyonephrosis; I10 Essential (primary) hypertension; Z87.442 Personal history of urinary calculi
CPT/HCPCS: 36415; 74176; 80048; 80053; 81001; 83605; 84702; 85025; 87040; 87086; 96365; 96375; A4344; G0378; J1885; J2250; J2405; J2704